=== PATIENT | male | born 1980 | race Caucasian/White ===

== ENCOUNTER → 2016-10-28 | Outpatient (CLI) | payer OTHER ==
[~2016-10-28] MED LIST: ALBUTEROL HFA INH; ALBUTEROL17 GM INH; BACTRIM DS TABL1 TA1 PO; BACTRIM DS TABL1 TAB PO; BACTROBAN22 GM TP; BUSPIRONE HCL10 MG PO; CELEXA20 MG PO; CIPRO PO; CIPRO250 M1 PO; CLEOCIN PO; ENDOCET 5-3251 EACH PO; FIORICET1 TAB PO; FLEXERIL10 MG; FLEXERIL10 MG PO; FLOMAX0.4 M1 DOB; FLOMAX0.4 M1 PO; FLONASE 0.05% N16 GM; HYDROCODON-ACE1 EAC7 PO; HYDROCODON-ACE1 EAC9 PO; KEFLEX500 MG PO; LIDOCAINE VISCOU1 ML EXT; LOMOTIL WHITE2.5 M1 PO; LORTAB 10-3251 EACH PO; MEDROL DOSEPAK4 MG PO; MONODOX100 MG PO; MOTRIN600 MG PO; NEURONTIN; NO MEDICATIONS; NORCO 7.5-3251 EACH; NORCO1 TAB 10/3 PO; PERCOCET 5-3251 TAB PO; PERCOCET 7.5/321 TAB PO; PERCOCET5/325 PO; PHENERGAN25 MG PO; PREDNISONE PO; PREDNISONE10 MG/DOSE PO; ROBAXIN 750750 M1 PO; STEROID; TYLENOL #3 PO; VIBRAMYCIN100 M1 PO; VICODIN 5/1 TAB 5/50 PO; VOLTAREN75 MG PO; ZANAFLEX4 M1 PO; ZOFRAN ODT4 MG PO; ZOFRAN ODT4 MG/UDTAB SL; ZOFRAN PO
--- NOTE | ~2016-10-28 | CR151 ---
[facility] A Service of [facility] & [facility] RADIOLOGY TEXT RESULTS PATIENT: MICHEAL FERNANDEZ LOCATION: [facility] : 78 UNIT #: [id number] AGE: [address]: Elizabeth Paniagua APRN SEX: M ORDER DR: [id number] [facility] [address] [place], [place] [address] [id number] O MR#: [id number] Acc #: [id number] NAME: MICHEAL FERNANDEZ : 1980 SEX: M STUDY DATE/TIME: 10/28/2016 9:57 UNIT: [facility] ROOM: STUDY DESCRIPTION: CR Hip Min 2 Views Rt Attending Physician: Elizabeth Paniagua Aprn Referring Physician: Elizabeth Paniagua Aprn Ordering Physician: Elizabeth Paniagua Aprn Primary Care Physician: Parish Medrano M.D. MEDICAL IMAGING REPORT This report is preliminary unless electronic signature is present EXAM Pelvis and right hip, 2 views. DATE OF EXAM 10/28/2016, 9:57 a.m. HISTORY Order states right hip pain. History sheet states right hip pain for 2 years, worse in the last 2 weeks. Patient believes it is work related. Patient has to bend a lot. No reported injury. COMPARISON CT of the abdomen pelvis, 04/06/2016. FINDINGS There is no fracture, dislocation, osseous lesion, or evidence of avascular necrosis. Sacrum and SI joints are unremarkable. IMPRESSION 1. Negative pelvis and right hip. Dictated by... Daniela Lowery M.D. THIS IS AN ELECTRONICALLY VERIFIED REPORT Daniela Lowery M.D. at 10/29/2016 9:09 AM URBANO/danielle TD: 10/28/2016 15:54 JOB #: [id number] MEDICAL IMAGING REPORT Page 1 of 1 COPY
== END | disposition home or self-care (01) ==
LOC: CRAD 09:49
DX: M25.551 Pain in right hip (principal)
CPT/HCPCS: 73502

== ENCOUNTER 2016-12-08 10:00 | Emergency (ER) | payer OTHER ==
--- NOTE | ~2016-12-08 | CT4 ---
[facility] A Service of [facility] & [facility] RADIOLOGY TEXT RESULTS PATIENT: MICHEAL FERNANDEZ LOCATION: SED : 78 UNIT #: [id number] AGE: [address]: Devika Medina MD SEX: M ORDER DR: [id number] [place] [id number] E MR#: [id number] Acc #: [id number] NAME: MICHEAL FERNANDEZ : 1980 SEX: M STUDY DATE/TIME: 12/08/2016 11:26 UNIT: SED ROOM: STUDY DESCRIPTION: CT Abd and Pelv Wo Cont Attending Physician: Devika Medina M.D. Ordering Physician: Devika Medina M.D. Primary Care Physician: Parish Medrano M.D. MEDICAL IMAGING REPORT This report is preliminary unless electronic signature is present. EXAM CT abdomen and pelvis 12/08/[address] exam was performed with one or more of the following radiation dose reduction techniques: automatic exposure control, adjustment of mA and/or kV according to patient size, and iterative reconstruction. HISTORY: Abdomen pain, vomiting since 2:[address] a[address]. [address] abdomen and pelvis performed without administration of oral or intravenous contrast. Lung bases are clear. Inferior heart and pericardium unremarkable. Liver, gallbladder, spleen, pancreas, adrenal glands unremarkable. Multiple bilateral nonobstructing renal calculi. Similar appearance on prior study. No hydronephrosis, hydroureter or ureteral calculus. No bladder calculi and no evidence of recent stone passage. No perinephric inflammatory change. CT Pelvis: No inguinal adenopathy. Urinary bladder unremarkable. Calcified phleboliths in the pelvis. No pelvic fluid collections. No pelvic or retroperitoneal adenopathy. Distal esophagus, stomach, small bowel notable for some borderline air and fluid/food debris distension of small bowel loops. No obstruction. Air fluid seen throughout small bowel fold to colon. No wall or fold thickening. The appearance of the small bowel is nonspecific and may be physiologic in nature. It could be a reflection of mild enteritis. The appendix is normal and the colon is unremarkable. Unopacified vascular structures unremarkable. Bony structures show no acute abnormality. IMPRESSION 1. There is borderline air fluid and food debris distension of some small bowel loops with no evidence of obstruction and no small bowel STS. [facility] A Service of [facility] RADIOLOGY TEXT RESULTS PATIENT: MICHEAL FERNANDEZ LOCATION: SED : 78 UNIT #: [id number] AGE: [address]: Devika Medina MD SEX: M ORDER DR: or associated mesenteric inflammatory change. The appearance of the small bowel is nonspecific and may be the normal physiologic state for this patient. It could be a reflection of mild enteritis given the patients stated symptoms. Remainder of the alimentary canal including appendix is normal. 2. Multiple bilateral nonobstructing intrarenal calculi. The kidneys, ureters, urinary bladder otherwise unremarkable with no secondary sign of recent stone passage. 3. Remainder study unremarkable. See details above. Dictated by... Obdulio Pierre M.D. THIS IS AN ELECTRONICALLY VERIFIED REPORT Obdulio Pierre M.D. at 12/11/2016 8:26 AM [place]ica TD: 12/08/2016 13:28 JOB #: [id number] MEDICAL IMAGING REPORT Page 1 of 1
[~2016-12-08 10:00] MED LIST changes: -BUSPIRONE HCL10 MG PO; -CELEXA20 MG PO; -LOMOTIL WHITE2.5 M1 PO; -ZANAFLEX4 M1 PO
[2016-12-08] MEDS ORDERED: ZANAFLEX4 M1 PO (10:05)
[2016-12-08] MEDS ORDERED: HYDROCODON-ACE1 EAC7 PO (10:06)
[2016-12-08 10:51] LABS: BASOPHIL% 0.4 % (0-2.5); EOSINOPHIL# 0.1 X10e3 (0-0.7); EOSINOPHIL% 1.2 % (0.0-7.0); HEMATOCRIT 48.8 % (38.0-50.0); HEMOGLOBIN 16.8 gm/dL (13.0-16.0); LYMPHOCYTE# 0.3 X10e3 (1.0-3.5); MEAN CELL VOLUME 88.6 FL (83-96); MEAN CORPUSCULAR HEMOGLOBIN 30.5 PG (28-34); MEAN CORPUSCULAR HGB CONC 34.4 g/dL (30-36); MEAN PLATELET VOLUME 10.1 FL (6.5-11.5); MONOCYTE# 0.5 X10e3 (0-1.0); MONOCYTE% 4.3 % (3.0-12.0); NEUTROPHIL# 9.8 X10e3 (1.5-7.1); NEUTROPHIL% 91.1 % (40-75); PLATELET COUNT 163 X10e3 (140-420); RED CELL DISTRIBUTION WIDTH 13.2 % (11.0-15.5); WHITE BLOOD COUNT 10.8 X10e3 (4.0-10.5)
[2016-12-08 10:59] LABS: DIFF IND NO
[2016-12-08 11:12] LABS: ALBUMIN SERUM 4.6 g/dL (3.5-5.0); BILIRUBIN, DIRECT 0.2 mg/dL (0.0-0.2); BILIRUBIN,INDIRECT 1.6 mg/dL (0.0-0.9); BILIRUBIN,TOTAL 1.8 mg/dL (0.2-2.0); CALCIUM SERUM 9.3 mg/dL (8.4-10.2); CREATININE SERUM 1.2 mg/dL (0.6-1.4); GLOM FILT RATE Estimated 76.8 mL/min (>60); POTASSIUM 4.1 mmol/L (3.5-5.1); PROTEIN TOTAL SERUM 7.8 g/dL (6.0-8.3)
[2016-12-08 11:32] LABS: URINE APPEARANCE CLEAR; URINE BILIRUBIN NEG (NEG); URINE BLOOD NEG (NEG); URINE COLOR YELLOW; URINE GLUCOSE NEG (NORM); URINE KETONE NEG (NEG); URINE LEUKOCYTE ESTERASE NEG (NEG); URINE NITRATE NEG (NEG); URINE PROTEIN NEG (NEG); URINE SPECIFIC GRAVITY 1.015 (1.003-1.035); URINE UROBILINOGEN 0.2 MG/DL (NORM)
[2016-12-08 11:39] LABS: URINE SOURCE CLEAN CATCH
[2016-12-08 11:40] LABS: MICRO INDICATED? NO
[2016-12-08 11:42] LABS: AMPHETAMINE NEG (NEG); BARBITURATES NEG (NEG); BENZODIAZEPINES NEG (NEG); COCAINE NEG (NEG); MARIJUANA NEG (NEG); OPIATES POS (NEG); TRICYCLIC ANTIDEPRESSANTS NEG (NEG); U METHADONE NEG (NEG)
[2016-12-08] MEDS ORDERED: ZOFRAN PO (12:46)
[2016-12-08] MEDS ORDERED: LOMOTIL WHITE2.5 M1 PO (12:47)
== END 2016-12-08 12:56 | disposition home or self-care (01) ==
LOC: SED 10:00
PROVIDERS: Student in an Organized Health Care Education/Training Program
DX: K52.9 Noninfective gastroenteritis and colitis, unspecified (principal); Z87.442 Personal history of urinary calculi; F17.200 Nicotine dependence, unspecified, uncomplicated; Z88.0 Allergy status to penicillin
CPT/HCPCS: 36415; 74176; 80048; 80076; 80307; 81003; 82150; 83690; 85025; 96361; 96374; 96375; 99284; C9113; J1885; J2405

== ENCOUNTER 2017-02-13 03:53 | Emergency (ER) | payer OTHER ==
[~2017-02-13] VITALS: Ht 190.5 cm; Wt 98.0 kg
[~2017-02-13 03:53] MED LIST changes: +LOMOTIL WHITE2.5 M1 PO; +ZANAFLEX4 M1 PO
[2017-02-13] MEDS ORDERED: CELEXA20 MG PO (04:08)
[2017-02-13] MEDS ORDERED: ZANAFLEX4 M1 PO (04:08)
[2017-02-13] MEDS ORDERED: BUSPIRONE HCL10 MG PO (04:09)
[2017-02-13 04:29] LABS: URINE SOURCE CLEAN CATCH
[2017-02-13 04:32] LABS: URINE APPEARANCE CLEAR; URINE BILIRUBIN NEG (NEG); URINE BLOOD NEG (NEG); URINE COLOR YELLOW; URINE GLUCOSE NEG (NORM); URINE KETONE NEG (NEG); URINE LEUKOCYTE ESTERASE NEG (NEG); URINE NITRATE NEG (NEG); URINE PH 6.5 (5-8); URINE PROTEIN NEG (NEG); URINE SPECIFIC GRAVITY 1.015 (1.003-1.035)
[2017-02-13 04:35] LABS: MICRO INDICATED? NO
[2017-02-13 04:42] LABS: AMPHETAMINE NEG (NEG); BARBITURATES NEG (NEG); BENZODIAZEPINES POS (NEG); COCAINE NEG (NEG); MARIJUANA NEG (NEG); OPIATES POS (NEG); TRICYCLIC ANTIDEPRESSANTS NEG (NEG); U METHADONE NEG (NEG)
== END 2017-02-13 04:57 | disposition home or self-care (01) ==
LOC: SED 03:53
DX: M54.5 Low back pain (principal); F17.200 Nicotine dependence, unspecified, uncomplicated; Z87.442 Personal history of urinary calculi; Z79.899 Other long term (current) drug therapy; Z88.0 Allergy status to penicillin; Z88.1 Allergy status to other antibiotic agents
CPT/HCPCS: 80307; 81003; 99283